=== PATIENT | male | born 1940 | race Caucasian/White ===

== ENCOUNTER 2016-08-07 11:32 | Emergency (ER) | payer OTHER ==
[~2016-08-07 11:32] MED LIST: AMLODIPINE BESYL5 MG PO; ASCRIPTIN; ASPIR-TRIN325 MG PO; ASPIRIN PO; ASPIRIN81 M2 PO; ATENOLOL PO; ATENOLOL25 MG PO; AZATHIOPRINE50 M1 PO; CALTRATE PLUS T1 TA1 PO; CARVEDILOL25 MG PO; CELEBREX100 MG PO; CELECOXIB200 MG PO; CENTRUM SILVER PO; CORDARONE200 M1 PO; CYMBALTA30 MG PO; EFFIENT10 MG PO; FISH OIL 1,0001 CAP PO; FOLIC ACID1 MG PO; LEVOTHYROXINE75 MCG PO; LIPITOR20 MG PO; LORTAB 7.5-5001 TAB PO; METHOTREXATE2.5 MG PO; NEXIUM PO; NEXIUM40 MG/PACK PO; NORVASC PO; NORVASC10 MG PO; PREDNISONE10 MG PO; PREDNISONE5 M1 PO; REMERON15 MG PO; SULFAMETHOXAZOLE; THYROXINE; XARELTO20 MG PO; ZOCOR20 MG PO
== END 2016-08-07 12:25 | disposition home or self-care (01) ==
LOC: SED 11:32
DX: R04.0 Epistaxis (principal); Z86.73 Personal history of transient ischemic attack (TIA), and cerebral infarction without residual deficits; Z90.49 Acquired absence of other specified parts of digestive tract; Z88.1 Allergy status to other antibiotic agents
CPT/HCPCS: 99283

== ENCOUNTER 2016-09-01 13:49 | Emergency (ER) | payer OTHER ==
[2016-09-01 13:48] LABS: BASOPHIL# 0.1 X10e3 (0-0.3); EOSINOPHIL# 0.1 X10e3 (0-0.7); EOSINOPHIL% 1.7 % (0.0-7.0); HEMATOCRIT 37.6 % (38.0-50.0); HEMOGLOBIN 12.1 gm/dL (13.0-16.0); LYMPHOCYTE# 1.7 X10e3 (1.0-3.5); LYMPHOCYTE% 27.6 % (17.0-45.0); MEAN CELL VOLUME 102.7 FL (83-96); MEAN CORPUSCULAR HEMOGLOBIN 33.1 PG (28-34); MEAN CORPUSCULAR HGB CONC 32.2 g/dL (30-36); MEAN PLATELET VOLUME 7.3 FL (6.5-11.5); MONOCYTE# 0.6 X10e3 (0-1.0); MONOCYTE% 9.5 % (3.0-12.0); NEUTROPHIL# 3.7 X10e3 (1.5-7.1); NEUTROPHIL% 60.2 % (40-75); PLATELET COUNT 236 X10e3 (140-420); RED BLOOD COUNT 3.66 X10e (3.90-5.60); RED CELL DISTRIBUTION WIDTH 14.2 % (11.0-15.5); WHITE BLOOD COUNT 6.2 X10e3 (4.0-10.5)
[2016-09-01 13:51] LABS: DIFF IND NO
[2016-09-01 14:07] LABS: INR 1.2; PARTIAL THROMBOPLASTIN TIME 31.2 SECONDS (23.5-31.3); PROTHROMBIN TIME (PATIENT) 12.7 SECONDS (9.6-11.5)
== END 2016-09-01 14:53 | disposition home or self-care (01) ==
LOC: CED 13:49
PROVIDERS: Emergency Medicine
DX: R04.0 Epistaxis (principal); I10 Essential (primary) hypertension; Z86.79 Personal history of other diseases of the circulatory system; Z90.49 Acquired absence of other specified parts of digestive tract; Z79.899 Other long term (current) drug therapy
CPT/HCPCS: 30903; 36415; 85025; 85610; 85730; 99283